=== PATIENT | male | born 1970 | race Caucasian/White ===

== ENCOUNTER 2025-03-10 12:54 | Outpatient (CLI) | payer MEDICAID ==
--- NOTE | 2025-03-10 13:58 | RADIOLOGY REPORT ---
MR MRI HEAD INDICATION: IMBALANCE EXAM DATE: 03/10/2025 12:53 PM COMPARISON: None PROCEDURE: Using a 1.5 Jyoti scanner, multisequence multiplanar imaging of the brain was obtained. FINDINGS: The brainshows normal morphology and signal characteristics. No abnormal T2 hyperintensity, diffusion restriction, or susceptibility hypointensity is present. The ventricles are normal in size . The midline structures are intact. The major intracranial flow voids are present. The aerated space s are normal. The orbital contents and extracranial soft tissues appear normal. IMPRESSION: Unremarkable MRI findings of the brain. No acute abnormality. No masses seen.
== END 2025-03-10 23:59 | disposition home or self-care (01) ==
LOC: MRI02 12:54
PROVIDERS: ATTEND General Practice
DX: R26.89 Other abnormalities of gait and mobility (principal)
CPT/HCPCS: 70551